=== PATIENT | male | born 1990 | race Two or more races ===

== ENCOUNTER 2020-11-29 06:46 | Emergency (ER) | payer SELFPAY ==
[~2020-11-29] VITALS: Ht 175.3 cm; Wt 116.1 kg
--- NOTE | 2020-11-29 07:22 | PHYS DOC ---
Past Medical History Past Medical History: No Pertinent History Past Surgical History: No Surgical History Smoking Status: Never Smoker Alcohol Use: None Drug Use: None General Adult EDM: Chief Complaint: MULTIPLE COMPLAINTS Problems: (1) Shortness of breath HPI: HPI: 29-year-old male with no past medical history reported presents to the emergency department complaining of shortness of breath only at night for the past 2 years with no acute change in symptoms. He reports for the last week he has had symptoms. Thinks he may have sleep apnea. He has never been tested for sleep apnea. He reports his symptoms are described as waking up in the middle of the night gasping. He is brought intermittent chest pain for the last 2 years but no chest pain currently. The patient denies nausea, vomiting, fever, chills, current chest pain, current shortness of breath, abdominal pain, urinary symptoms, cough, recent trauma, or any other complaints. Review of Systems: Review of Systems: ROS is otherwise negative except for what was mentioned in HPI Heart Score: C/O Chest Pain: N/A Risk Factors: Risk Factors: DM, Current or recent (<one month) smoker, HTN, HLP, family history of CAD, obesity. Risk Scores: Score 0 - 3: 2.5% MACE over next 6 weeks - Discharge Home Score 4 - 6: 20.3% MACE over next 6 weeks - Admit for Clinical Observation Score 7 - 10: 72.7% MACE over next 6 weeks - Early Invasive Strategies Family History: Family History: Noncontributory Current Medications: My Orders - ALEXIS DUENAS DO Procedure Category Date Status Time 12 Lead Ekg EKG 11/29/20 Logged 07:16 Chest Pa & Lateral RAD 11/29/20 Logged 07:16 Allergies: Allergies: Allergies Coded Allergies Type Severity Reaction Last Updated Verified No Known Drug Allergies 11/29/20 No Physical Exam: PE: Constitutional: No acute distress, non-toxic appearance. HENT: Atraumatic, bilateral external ears normal, nose normal. Eyes: PERRLA, EOMI, conjunctiva normal, no discharge. Neck: Normal range of motion, supple, no stridor. Cardiovascular: Heart rate regular rhythm. 2+ radial pulses Lungs & Thorax: No respiratory distress, symmetrical expansion. Bilateral breath sounds clear to auscultation Abdomen: Soft, no tenderness Skin: Warm, dry. Extremities: No tenderness, no cyanosis, ROM intact, no edema. Neurologic: Alert and oriented X 3, normal motor function, normal sensory function, no focal deficits noted. Non ataxic gait. GCS 15. Psychologic: Affect normal, judgment normal, mood normal. Current Patient Data: Vital Signs: Vital Signs Date Time Temp Pulse Resp B/P (MAP) Pulse Ox O2 Delivery O2 Flow Rate FiO2 11/29/20 07:15 98.2 65 18 128/61 97 Room Air 98.2 11/29/20 07:14 62 22 128/61 (83) 98 Room Air EKG: EKG: Normal sinus rhythm rate of 60, no ST-T wave changes, no ectopic beats, normal axis, normal CT, QRS, and QTc intervals. Impression: Normal EKG. interpreted by Alexis zurita D.O. Radiology/Procedures: Radiology/Procedures: No airspace disease, infiltrates or consolidations, lung stout clear. No pneumothorax or pleural effusion. Cardiac silhouette within normal limits. No widening of mediastinum. No obvious free air seen. Impression: normal CXR. Interpreted by Alexis zurita D.O. Course & Med Decision Making: Course & Med Decision Making Patient with symptoms for 2 years, does not appear to have a acute issue today as he does not have shortness of breath or chest pain at the time of the evaluation. Vitals are stable, chest x-ray and EKG are normal, he was advised to follow-up with a floorworker for testing as well as a primary care physician and was given instructions and materials to follow-up with your primary care doctor. Departure Departure Impression: Primary Impression: Waking at night short of breath Disposition: 01 HOME / SELF CARE / HOMELESS Condition: STABLE Referrals: TREVOR CLARKE MD Patient Instructions: Sleep Apnea, [id number] Additional Instructions: We do not offer sleep apnea testing in the emergency department, you will need to follow-up with a floorworker or primary care physician for further testing. I have included the name and number of a floorworker he can follow-up with along with information to set up care in a primary care clinic. Please follow- up with 1 of these doctors and return to the emergency department if you have any further symptoms that he cannot manage at home. ALEXIS DUENAS DO Nov 29, 2020 07:22
--- NOTE | 2020-11-29 07:47 | RAD ---
PA and lateral chest. HISTORY: Short of air PA and lateral views were taken of the chest. Lungs are clear. Heart is normal in size. There is no p leural effusion. IMPRESSION: 1. No acute chest disease. Electronically signed by: Eddie Hartmann MD (11/29/2020 7:45 AM) [id number]
[2020-11-29 07:53] VITALS: BP 119/69
--- NOTE | 2020-11-29 15:05 | EKG ---
[facility] [address] [place] [address] Test Date: 2020-11-29 Test Time: 07:27:15 Pat Name: SERA MESSINA Department: Room: Gender: M Laundry Assistant: : 1990 Requested By: XOCHILT DUENAS Order Number: [id number] Reading MD: Measurements Intervals [place] Rate: 60 P: 19 ND: 162 QRS: 18 QRSD: 92 T: 23 QT: 384 QTc: 384 Interpretive Statements SINUS RHYTHM NORMAL ECG RI6.02 No previous ECG available for comparison
== END 2020-11-29 07:58 | disposition home or self-care (01) ==
LOC: ER 06:46
DX: R06.02 Shortness of breath (principal)
CPT/HCPCS: 71046; 93005; 99283